=== PATIENT | female | born 1990 | race Caucasian/White ===

== ENCOUNTER → 2018-02-03 13:58 | Outpatient (CLI) | payer SELFPAY ==
[2018-02-03 15:57] LABS: Absolute Lymphocyte Count 1.65 X10^3/ul (0.83-4.51); Absolute Neutrophil Count 5.9 X10^3/uL (2.0-7.7); Basophil# 0.02 X10^3/uL; Basophil% 0.2 % (0-1); Eosinophil# 0.04 X10^3/uL; Eosinophils% 0.5 % (0-5); Hematocrit 37.3 % (37-47); Hemoglobin 12.3 g/dl (12.0-15.0); Lymphocyte # 1.65 X10^3/ul (4.0); Lymphocyte % 20.4 % (19-41); Mean Corpuscular Hgb 28.8 pg (27.0-32.0); Mean Corpuscular Volume 87.4 fL (81-99); Mean Platelet Vol. 8.4 fl (6.2-12.0); Monocyte# 0.43 X10^3/uL; Monocyte% 5.3 % (0-10); Neutrophil # 5.94 X10^3/uL (2.7-7.7); Neutrophil % 73.5 % (47-70); Platelet Count 276 K/mm3 (150-450); RBC Distribution Width CV 12.5 % (11.6-14.6); RBC Distribution Width SD 39.2 fl (35.1-43.9); Red Blood Count 4.27 M/mm3 (4.2-5.4); White Blood Count 8.1 K/mm3 (4.4-11.0)
[2018-02-03 15:59] LABS: POSITIVE COUNT NO; POSITIVE DIFFERENTIAL NO; POSITIVE MORPHOLOGY NO
[2018-02-03 16:36] LABS: Thyroid Stim Hormone (TSH) 1.01 uIU/mL (0.358-3.74)
[2018-02-03 16:44] LABS: Color, Urine Yellow (Yellow); Glucose, Dipstick Normal (Normal); Ketone-Dipstick Negative (Negative); Leukocyte Esterase-Dipstick 25 /ul (Negative); Nitrite-Dipstick Negative (Negative); Occult Blood-Urine Negative /ul (Negative); Protein-Dipstick Negative (Negative); Specific Gravity, Urine 1.025 (1.002-1.030); Urine Bilirubin Dipstick Negative (Negative); Urine Clarity Cloudy (Clear); Urine Urobilinogen Normal (Normal)
[2018-02-03 16:52] LABS: HIV - WCH Non-Reactive (Nonreactive); Rubella IgG 414.6 IU/mL
[2018-02-03 17:41] LABS: Chlamydia Trachomatis by PCR Negative (Negative); Neisserai gonorrhoeae by PCR Negative (Negative); Probe Check PASS; Sample Adequacy Control PASS; Specimen Processing Control PASS
[2018-02-05 04:36] LABS: Prenatal RPR NONREACTIVE (NONREACTIVE)
[2018-02-05 11:13] LABS: HEPATITIS B SURFACE AG Negative (Negative); Hep C Antibodies 0.1 s/co ratio (0.0-0.9)
== END ==
PROVIDERS: Visit Provider Obstetrics & Gynecology
DX: Z34.81 Encounter for supervision of other normal pregnancy, first trimester (principal); Z11.3 Encounter for screening for infections with a predominantly sexual mode of transmission
CPT/HCPCS: 36415; 81002; 84443; 85025; 86703; 86762; 86803; 87340; 87491; 87591

== ENCOUNTER → 2018-05-31 14:34 | Outpatient (CLI) | payer SELFPAY ==
[2018-05-31 15:40] LABS: Hematocrit 34.8 % (37-47); Hemoglobin 11.5 g/dl (12.0-15.0); Mean Corpuscular Hgb 29.9 pg (27.0-32.0); Mean Corpuscular Volume 90.4 fL (81-99); Mean Platelet Vol. 8.7 fl (6.2-12.0); Platelet Count 309 K/mm3 (150-450); RBC Distribution Width CV 12.3 % (11.6-14.6); RBC Distribution Width SD 39.5 fl (35.1-43.9); Red Blood Count 3.85 M/mm3 (4.2-5.4); White Blood Count 12.5 K/mm3 (4.4-11.0)
[2018-05-31 15:41] LABS: Scan Indicated on CBC? Y/N NO
[2018-05-31 15:46] LABS: Glucose Challenge Gest 1H 50g 87 mg/dL (70-140)
== END ==
PROVIDERS: Visit Provider Obstetrics & Gynecology
DX: Z34.83 Encounter for supervision of other normal pregnancy, third trimester (principal)
CPT/HCPCS: 82950; 85027; 86850

== ENCOUNTER → 2018-07-21 13:39 | Outpatient (CLI) | payer SELFPAY | PROVIDERS: Visit Provider Obstetrics & Gynecology | DX: Z36.85 Encounter for antenatal screening for Streptococcus B (principal) | CPT/HCPCS: 87081 ==

== ENCOUNTER 2018-08-12 07:00 | Inpatient (IN) | payer SELFPAY ==
[2018-08-12 07:13] VITALS: BMI 32.6
[2018-08-12 08:18] LABS: Hemoglobin 11.1 g/dl (12.0-15.0); Mean Corp Hgb Conc 32.6 g/gl (32-36); Mean Corpuscular Hgb 29.4 pg (27.0-32.0); Mean Corpuscular Volume 89.9 fL (81-99); Mean Platelet Vol. 9.8 fl (6.2-12.0); Platelet Count 157 K/mm3 (150-450); RBC Distribution Width CV 13.2 % (11.6-14.6); Red Blood Count 3.78 M/mm3 (4.2-5.4); Scan Indicated on CBC? Y/N NO; White Blood Count 10.1 K/mm3 (4.4-11.0)
[2018-08-12] MEDS: Lactated Ringers 1,000 ML 50 ML IV ×3 (08:33→15:23)
[2018-08-12] MEDS: Oxytocin 30 units/NS 500 ml 30 UNITS/500 ML IV.SOLN IV (08:33)
[2018-08-12] MEDS: Oxytocin 30 units/NS 500 ml 30 UNITS/500 ML IV.SOLN 334 UNITS IV (18:21)
--- NOTE | 2018-08-12 18:35 | PCM.OB.VAG ---
Vaginal Delivery Maternal Presentation: Elective Induction Method of Induction: Pitocin, Amniotomy Amniotic Membrane Rupture Type: Artificial Amniotic Fluid Description: Clear Final MJ: 08/16/18 Final MJ Source: US <20 weeks Gestational age: 39 Weeks and 3 Days Date of Procedure: 08/12/18 Pre-Operative Diagnosis: IUP Post-Operative Diagnosis: IUP Surgery/ Procedure Performed: Spontaneous Vaginal Delivery Type of Anesthesia: Epidural Description of Procedure: Spontaneous vaginal delivery of a viable male infant with Apgars of 8/9 from an occiput anterior presentation with clear amniotic fluid and normal three-vessel placenta. Cord around left arm loose. No episiotomy. First-degree midline laceration repaired with 3-0 Vicryl suture. Sponges okay. Delivery physician: Del Anderson MD Presentation: Vertex Placental Delivery Description: Spontaneous Placenta Disposition: [facility] Cord Vessel Description: 3 Vessels Cord Entanglement: None Estimated Blood Loss: 250 cc Infant A gender: Male (1 minute): 8 (5 minute): 9 Episiotomy Description: None Laceration: Midline, 1st degree Medications given after delivery: IV Pitocin Complications: None
--- NOTE | 2018-08-12 18:38 | PCM.DCVAG ---
Discharge Diet: No Restrictions Discharge Activity: May Shower, May Take a Tub Bath May resume sexual activity in: 4-6 weeks Additional Activity Instructions:: Nothing in the vagina for 4-6 weeks. You may return to work/school in 6 weeks. Call your doctor if you observe: Fever of 101 or Higher, Inability to urinate, Inability to have a bowel movement, Using more than one pad per hour Additional Instructions: If you experience any of the following, contact your healthcare provider. Bleeding that soaks a pad every hour for 2 hours Unrelieved incision or abdominal pain Swelling, redness, discharge or bleeding from your incision or episiotomy site Your incision begins to separate Problems urinating (including inability to urinate or burning while urinating). Visual changes Severe headache Flu-like symptoms Pain or redness in one of both of your breasts Pain, warmth, tenderness or swelling in your legs, especially the calf area Frequent nausea and vomiting Symptoms of depression or anxiety If you experience any of the following, call 911 or go to the nearest Emergency Room. Chest pain Problems breathing Seizure activity Partial or complete paralysis of a body part, slurred speech, weakness or drooping of the face, or a sudden inability to walk or hold your balance Allergies/Adverse Reactions: Allergies No Known Allergies Allergy (Verified 08/12/18 07:35) Please Follow Up With: Del Anderson MD - [phone] When: Call to make an appointment with your doctor in 6 weeks. Primary Care Physician: Care Physician,No Primary [Primary Care Provider] - Test Results: Test results from this visit will be discussed in further detail at your follow-up appointment, if applicable.
--- NOTE | 2018-08-12 18:39 | DCINST_ITS ---
Discharge Diet: No Restrictions Discharge Activity: May Shower, May Take a Tub Bath May resume sexual activity in: 4-6 weeks Additional Activity Instructions:: Nothing in the vagina for 4-6 weeks. You may return to work/school in 6 weeks. Call your doctor if you observe: Fever of 101 or Higher, Inability to urinate, Inability to have a bowel movement, Using more than one pad per hour Additional Instructions: If you experience any of the following, contact your healthcare provider. * Bleeding that soaks a pad every hour for 2 hours * Unrelieved incision or abdominal pain * Swelling, redness, discharge or bleeding from your incision or episiotomy site * Your incision begins to separate * Problems urinating (including inability to urinate or burning while urinating). * Visual changes * Severe headache * Flu-like symptoms * Pain or redness in one of both of your breasts * Pain, warmth, tenderness or swelling in your legs, especially the calf area * Frequent nausea and vomiting * Symptoms of depression or anxiety If you experience any of the following, call 911 or go to the nearest Emergency Room. * Chest pain * Problems breathing * Seizure activity * Partial or complete paralysis of a body part, slurred speech, weakness or drooping of the face, or a sudden inability to walk or hold your balance Allergies/Adverse Reactions: Allergies No Known Allergies Allergy (Verified 08/12/18 07:35) Please Follow Up With: Del Anderson MD - [phone] When: Call to make an appointment with your doctor in 6 weeks. Primary Care Physician: Care Physician,No Primary [Primary Care Provider] - Test Results: Test results from this visit will be discussed in further detail at your follow- up appointment, if applicable.
[2018-08-12] MEDS: Oxytocin 30 units/NS 500 ml 30 UNITS/500 ML IV.SOLN 167 UNITS IV (18:51)
[2018-08-12 22:21] VITALS: BP 119/64; PULSE 96; RESP 16; TEMP 36.7
[2018-08-12] MEDS: Ibuprofen 600 MG Tablet PO (22:23)
[2018-08-13 01:35] VITALS: BP 107/53; PULSE 78; RESP 16; TEMP 36.4; O2SAT 98
[2018-08-13 04:31] VITALS: BP 91/56; PULSE 78; RESP 14; TEMP 36.3; O2SAT 96
[2018-08-13] MEDS: Acetaminophen 500 MG Tablet 1000 MG PO (06:53)
[2018-08-13 08:44] VITALS: BP 109/64; PULSE 84; RESP 16; TEMP 36.4; O2SAT 98
--- NOTE | 2018-08-13 09:20 | PCM.PN.OB ---
Subjective: Patient without complaints. Breast-feeding going well. Minimal vaginal bleeding noted. Wants to go home later today if baby is able to go. - Physical Exam Vital Signs Temp Pulse Resp BP Pulse Ox 97.5 F L 84 16 109/64 98 08/13/18 08:44 08/13/18 08:44 08/13/18 08:44 08/13/18 08:44 08/13/18 08:44 Oxygen Delivery Method Room Air Weight: 193 lb 2 oz Body Mass Index (BMI) 32.6 Intake and Output for Last 24 Hours 08/11/18 08/12/18 08/13/18 23:59 23:59 23:59 Output Total 200 / 200 Balance -200 / -200 Laboratory Tests Past 24 Hrs 08/12/18 08/12/18 08:00 09:50 Blood Type Cancelled A NEGATIVE A1 Antigen Typing Cancelled Rho(D) Type Cancelled Antibody Screen Cancelled NEGATIVE Medical Necessity - Tobacco Use Smoking Status: Never smoker Assessment/Plan Doing well day #1. Home-going instructions given in anticipation of released to home later today.
[2018-08-13 13:00] VITALS: BP 112/60; PULSE 79; RESP 16; TEMP 36.6; O2SAT 98
[2018-08-13] MEDS: Ibuprofen 600 MG Tablet PO ×2 (13:10→19:59)
[2018-08-13 16:00] VITALS: BP 110/58; PULSE 84; RESP 16; TEMP 36.7; O2SAT 96
--- NOTE | 2018-08-17 16:01 | NURSING ---
Doing well . Baby nursing well and milk is in and baby gaining weight. Really like Sadie she was amazing and Nadine and Tasha were very helpful.
== END 2018-08-13 20:00 | disposition home or self-care (01) | DRG 807 ==
PROVIDERS: Admitting Provider Obstetrics & Gynecology; Referring Provider Obstetrics & Gynecology; Visit Provider Obstetrics & Gynecology
DX: O75.89 Other specified complications of labor and delivery (principal); Z37.0 Single live birth; O70.0 First degree perineal laceration during delivery; Z3A.39 39 weeks gestation of pregnancy
CPT/HCPCS: 59025; 59050; 85027; 85461; 86850; 86900; 90384; 99218; J7120; 90686; G0378; J2790

== ENCOUNTER → 2019-06-01 15:07 | Outpatient (CLI) | payer OTHER, SELFPAY ==
[2019-06-01 15:34] LABS: Absolute Lymphocyte Count 1.76 X10^3/uL (0.83-4.51); Absolute Neutrophil Count 6.2 X10^3/uL (2.0-7.7); Basophil# 0.02 X10^3/uL; Basophil% 0.2 % (0-1); Eosinophil# 0.04 X10^3/uL; Eosinophils% 0.5 % (0-5); Hematocrit 35.8 % (37-47); Hemoglobin 11.8 g/dL (12.0-15.0); Lymphocyte # 1.76 X10^3/ul (4.0); Lymphocyte % 20.7 % (19-41); Mean Corpuscular Hgb 28.6 pg (27.0-32.0); Mean Corpuscular Volume 86.7 fL (81-99); Mean Platelet Vol. 8.3 fl (6.2-12.0); Monocyte# 0.45 X10^3/uL; Monocyte% 5.3 % (0-10); NRBC Flagged by Analyzer 0 % (0-5); Neutrophil # 6.21 X10^3/uL (2.7-7.7); Neutrophil % 72.9 % (47-70); Platelet Count 272 K/mm3 (150-450); RBC Distribution Width CV 11.9 % (11.6-14.6); RBC Distribution Width SD 37.9 fl (35.1-43.9); Red Blood Count 4.13 M/mm3 (4.2-5.4); White Blood Count 8.5 K/mm3 (4.4-11.0)
[2019-06-01 15:46] LABS: Color, Urine Yellow (Yellow); Glucose, Dipstick Normal (Normal); Ketone-Dipstick Negative (Negative); Leukocyte Esterase-Dipstick 100 /ul (Negative); Nitrite-Dipstick Negative (Negative); Occult Blood-Urine Negative /ul (Negative); Protein-Dipstick Negative (Negative); Specific Gravity, Urine 1.025 (1.002-1.030); Urine Bilirubin Dipstick Negative (Negative); Urine Clarity Cloudy (Clear); Urine Urobilinogen Normal (Normal)
[2019-06-01 16:03] LABS: Thyroid Stim Hormone (TSH) 1.06 uIU/mL (0.358-3.74)
[2019-06-01 18:17] LABS: Chlamydia Trachomatis by PCR Negative (Negative); Neisserai gonorrhoeae by PCR Negative (Negative); Probe Check PASS; Sample Adequacy Control PASS; Specimen Processing Control PASS
[2019-06-02 03:12] LABS: Prenatal RPR NONREACTIVE (NONREACTIVE)
[2019-06-02 09:52] LABS: HIV - WCH Non-Reactive (Nonreactive); Hepatitis B Surface Antigen Non-Reactive (Nonreactive); Hepatitis C Antibody Non-Reactive (Nonreactive); Rubella IgG 387.8 IU/mL
== END ==
PROVIDERS: Visit Provider Obstetrics & Gynecology
DX: Z11.3 Encounter for screening for infections with a predominantly sexual mode of transmission (principal); Z34.82 Encounter for supervision of other normal pregnancy, second trimester
CPT/HCPCS: 36415; 81002; 84443; 85025; 86703; 86762; 86803; 87340; 87491; 87591

== ENCOUNTER → 2019-09-15 09:54 | Outpatient (CLI) | payer OTHER, SELFPAY ==
[2019-09-15 10:51] LABS: Hematocrit 35.5 % (37-47); Hemoglobin 11.7 g/dL (12.0-15.0); Mean Corpuscular Hgb 29.8 pg (27.0-32.0); Mean Corpuscular Volume 90.3 fL (81-99); Mean Platelet Vol. 8.6 fl (6.2-12.0); Platelet Count 249 K/mm3 (150-450); RBC Distribution Width CV 12.2 % (11.6-14.6); RBC Distribution Width SD 40.5 fl (35.1-43.9); Red Blood Count 3.93 M/mm3 (4.2-5.4)
[2019-09-15 10:58] LABS: Glucose Challenge Gest 1H 50g 95 mg/dL (70-140)
== END ==
PROVIDERS: Visit Provider Obstetrics & Gynecology
DX: Z34.83 Encounter for supervision of other normal pregnancy, third trimester (principal)
CPT/HCPCS: 36415; 82950; 85027; 86850

== ENCOUNTER → 2019-11-10 17:28 | Outpatient (CLI) | payer OTHER, SELFPAY | PROVIDERS: Referring Provider Obstetrics & Gynecology; Visit Provider Obstetrics & Gynecology | DX: Z36.85 Encounter for antenatal screening for Streptococcus B (principal) | CPT/HCPCS: 87081 ==

== ENCOUNTER 2019-11-30 07:00 | Inpatient (IN) | payer SELFPAY ==
[2019-11-30] VITALS (45 sets, daily range): BP systolic 109–133; BP diastolic 58–77; PULSE 67–163; RESP 16; TEMP 36.3–37; O2SAT 82–99; BMI 34.0
[2019-11-30] MEDS: Lactated Ringers 1,000 ML 50 ML IV (07:35)
[2019-11-30 07:45] LABS: Absolute Lymphocyte Count 1.38 X10^3/uL (0.83-4.51); Absolute Neutrophil Count 6.6 X10^3/uL (2.0-7.7); Basophil# 0.02 X10^3/uL; Basophil% 0.2 % (0-1); Eosinophil# 0.08 X10^3/uL; Eosinophils% 0.9 % (0-5); Hematocrit 34.3 % (37-47); Hemoglobin 11.3 g/dL (12.0-15.0); Lymphocyte # 1.38 X10^3/ul (4.0); Lymphocyte % 15.6 % (19-41); Mean Corp Hgb Conc 32.9 g/dL (32-36); Mean Corpuscular Hgb 29.6 pg (27.0-32.0); Mean Corpuscular Volume 89.8 fL (81-99); Mean Platelet Vol. 8.6 fl (6.2-12.0); Monocyte# 0.63 X10^3/uL; Monocyte% 7.1 % (0-10); NRBC Flagged by Analyzer 0 % (0-5); Neutrophil # 6.61 X10^3/uL (2.7-7.7); Neutrophil % 74.7 % (47-70); Platelet Count 231 K/mm3 (150-450); RBC Distribution Width CV 12.5 % (11.6-14.6); RBC Distribution Width SD 40.4 fl (35.1-43.9); Red Blood Count 3.82 M/mm3 (4.2-5.4); White Blood Count 8.9 K/mm3 (4.4-11.0)
[2019-11-30] MEDS: Oxytocin 30 units/NS 500 ml 30 UNITS/500 ML IV.SOLN IV (08:00)
--- NOTE | 2019-11-30 08:18 | HP.PCM_ITS ---
History and Physical Date of Admission: 11/30/19 OG ANTEPARTUM RECORD - HISTORY AND PHYSICAL (11/30/2019) Name: FLOR FUENTES History of This : This is a 29-year-old 4 para 3 who presents for elective induction. care has been uneventful. OB Physician: LEROY 's Physician: Dr. Renee Balderas ...................................................................... : 1990 Age: 29 Address: [address] [place] [address] Phone: (h) [phone] (o) [phone] Insurance Carrier: Emergency Contact: KRISHNIDHI GUZMAN ALFREDO [phone] ...................................................................... Final MJ: 12/04/19 By Ultrasound: 13 weeks 3 days PARITY: (G-Total Pregnancies P-Fullterm,Premature,Induced AB,Spont AB, Ectopics, Multiple,Living) MJ CONFIRMATION: By LMP: 02/27/19 Initial Exam: 12/04/19 By First Ultrasound Exam: 12/03/19 Final MJ: 12/04/19 OB PROBLEM LIST: Declines AFP and CF tests. Rh negative RhoGAM at 28 wks Second delivery required Cynthia Maneuver x 2 to deliver z--Prefers MD for delivery ALLERGIES: No Known Allergies MEDICATIONS: iron 325 mg (65 mg iron) tablet One pill by mouth once a day [place] 3-6-9 1,200 mg capsule One pill by mouth once a day 28 mg iron-800 mcg tablet One pill by mouth once a day SOCIAL HISTORY: Smoking - denies smoking Alcohol Use - denies drinking Diet - balanced Diet, caffeine < 2 drinks per day and water intake tries for one gal daily. LIkes water. Lifestyle - low stress lifestyle and Exercise - active work Employer - [employer] Job Description - Illicit Drug Use - denies use of street drugs Sexual Activity - Residence - Lives with and kids. 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 Jan 22 40 15 7 12 Vag Epidural No Jul 27 40 5 8 12 Vag None No Jul 31 39 9 7 2 Vagin Epidural No ANTEPARTUM FLOW CHART VISIT RTC FU F F IL U U DATE WK MD WKS HT PN HR M SS BP ED WT IL GL D EF ST __ ____ ___ __ __ ___ __ __ __ ___ __ __ __ ___ __ 14 November 38 JMW 1 38 V + + 118/74 0 199 - - 2+ 50 -2 07 November 37 JMW 1 37 V + + 128/64 0 199 - - 2 50 -2 Oct 36 JMW 1 36 V + + 122/68 0 199 - - ft 50 -2 16 Oct JMW 2 34 + + 134/66 tr 197 tr - 05 Oct 07 JMW 4 28 + + 110/64 0 193 - - 03 Sep 05 JMW 4 24 + + 112/60 0 184 tr - Jul 31 JMW 4 20 + + 104/66 0 179 - - ANTEPARTUM NOTE(S): Nov 24 2019: see notes, Induce per Request Nov 17 2019: see progress note, Good FM Nov 10 2019: see note, GBS Done Oct 27 2019: Ctxs-mild, Good FM Sep 15 2019: see note, Rhogam today Aug 15 2019: Glucola/Instructions Given,FM Noted Jul 14 2019: Feeling well. BH ctx's noted. COMPREHENSIVE ANTEPARTUM NOTE(S): Nov 24 2019: Flor is here for a PNV. She is doing well. Good FM. No edema. Would like a cervical check today. No complaints or concerns expressed at this time. Induction scheduled for 11/30/2019 @ 7:00am, consents signed. Nov 24 2019: Induction literature provided. Nov 17 2019: Flor reports good FM. Up until 2 am w/ctx's. She has had a few today. No spotting. No leaking fluid. She would like to have a vag exam today. GBS negative 11/10/19. Advised to pre-register. Nov 14 2019: H taken to OB. tkg Nov 10 2019: Flor is here for a PNV. She is doing well. Good FM. No edema. Reports pressure in her lower abdomen, legs, and groin area. Says it might be due to her carrying around her 1 year old son during the day. GBS to be collected today and consents signed. Signed LARC consent, agreed to Mirena IUD. Sep 15 2019: Flor is here for a PNV. Good FM. No edema. No complaints at this time. Labs drawn today. Rhogam shot administered. Sep 15 2019: Rhogam administered IM RUOQ patient tolerated well site without compromise. jlb Jul 14 2019: Flor is here for her NOB visit at 19 w 4 d, she is a with an MJ of 12/04/2019. She, and , Luis Fernando, have 3 children at home; all delivered by . Past history updated. Delivery at [facility] is planned with an epidural, and she will breastfeed. Flor is an established patient, and her labs have been collected at a prior visit. Reviewed danger signs/emergencies to report, reporting a suspected UTI, round ligament pain, contacting the office after hours, and common OTC medications approved/not approved for use during . Flor states that first trimester nausea has resolved; and that she has been noting some BH ctx's. States that she feels well overall. She takes an OTC vitamin and tolerates this well. Flor is a life long non-smoker, and denies use of drugs or ETOH. Genetic Screening form completed, no significant history noted. MSAFP and CF testing de clined. Flor exercises regularly in the evenings, she states it's a workout. Reviewed exercise and lifting guidelines for . She eats an overall well balanced diet, she plans to watch her carb intake following the holidays. Reviewed water and dietary needs, including small frequent balanced meals with protein included throughout the day, adequate wate hydration of at least one gallon per 24 hours, caloric needs, recommended weight gain, limiting empty calories, and limiting caffeine to one cup a day. food safety reviewed. Flor states that she understands all information provided during NOB visit, and has no questions following same. To see Dr. Anderosn for a PNV today. AW New Jun 02 2019: A neg. GC chlamydia NEG. Rubella immune. TSH wnl. Hgb 11.8 g/dl EB Jun 01 2019: Flor presents here today for Missed Menses appointment. 29 y.o. G 4 P 3 non-smoker with history of regular menses and LMP of 08-18-19 lasting her average of 4 days. UPT is positive today in our Office. Presents at 14 weeks 3 days with an approximate MJ of 12-05-19. Plans at [facility] as last was 08/12/18. Denies spotting/bleeding thus far in and reports that her nausea has past in the last week. Currently taking an OTC Vitamin with Educational Materials given. Medication and Allergy lists up-dated. Last pap screening in 2018 with normal results. TANGELA Jun 01 2019: ok REVIEW OF SYSTEMS: GENERAL - Denies fever, or chills SKIN - Denies rash, new skin lesions, or change in moles EYES - Denies blurred vision, or change in visual acuity EARS - Denies ear pain, or difficulty hearing NOSE - Denies nasal congestion, discharge, or bleeding MOUTH - Denies sore throat, or difficulty swallowing NECK - Denies pain or swelling RESPIRATORY - Denies shortness of breath, cough, wheezing CARDIOVASCULAR - Denies palpitations, chest pain, orthopnea, PND, peripheral edema, syncope or claudication GASTROINTESTINAL - Denies nausea, vomiting, diarrhea, constipation, Denies abdominal pain, melena and or bright red blood GENITOURINARY - Denies dysuria, frequency of urination, urgency, or hesitancy MUSCULOSKELETAL - Denies joint or muscle pain, or back pain NEUROLOGICAL - Denies localized numbness, weakness, or tingling PSYCHIATRIC - Denies depression, anxiety, substance abuse or suicide attempts ENDOCRINE - Denies heat or cold intolerance, weight loss or gain, increasing thirst HEMATO-IMMUNOLOGIC - Denies easy bruising, bleeding, oral ulcerations or recurrent infections GENETICS SCREENING: Age 35+ years: No Thalassemia: No Neural Tube Defect: No Down Syndrome: No ZAFAR-SACHS: No Sickle Cell Disease: No Hemophilia: No Musc. Dystrophy: No Cystic Fibrosis: No-declines screening Day Chorea: No Mental Retardation: No Fragile X: No Other genetic: No Other defects: No SABs/still births: No Drugs since LMP: No INFECTION HISTORY: High risk AIDS: No High risk Hepatitis: No Exposed to TB: No Exposed to Herpes: No Rash/viral illness since LMP: No History of STD: No MENSTRUAL HISTORY: *Menses Amount/Duration: 4 daysMenses Regularity: RegularFrequency: monthlyMenarche (Age Onset): 12* PAST SUMMARY: PARITY: 1. Total Pregnancies............ 4 2. Full Term Pregnancies........ 3 3. Premature.................... 0 4. Abortions - Induced.......... 0 5. Abortions - Spontaneous...... 0 6. Ectopics..................... 0 7. Multiple Births.............. 0 8. Living Children.............. 3 PAST #1: Date of :.................. 01/16/13 Gestation Weeks:................ 40 Length of labor(hours):......... 15 Sex:............................ F Weight-lbs:............... 7 Weight-oz:................ 12 Type of Delivery:............... Vag Type of Anesthesia:............. Epidural Place of Delivery:.............. [place] Treatment of Labor?:.... No Comment: [facility] PAST #2: Date of :.................. 07/20/14 Gestation Weeks:................ 40 Length of labor(hours):......... 5 Sex:............................ M Weight-lbs:............... 8 Weight-oz:................ 12 Type of Delivery:............... Vag Type of Anesthesia:............. None Place of Delivery:.............. [facility] Treatment of Labor?:.... No Comment: CAN. RESCUSITATED. PAST #3: Date of :.................. 08/12/18 Gestation Weeks:................ 39 Length of labor(hours):......... 9 Sex:............................ M Weight-lbs:............... 7 Weight-oz:................ 2 Type of Delivery:............... Vaginal Type of Anesthesia:............. Epidural Place of Delivery:.............. [place] Treatment of Labor?:.... No Comment: IOL PHYSICAL EXAMINATION General Appearence: 29 yo female in no acute distress Vital Signs: AF, VSS Heart: RRR without rubs or gallops Lungs: CTA x 2 Breasts: deferred Abdomen: gravid Pelvis: Cervix: 2+/50 Presentation: cephalic Station: -2 Fetus: Size: AGA Movement: present Heart: present Labs for : FLOR FUENTES since 03/09/2019 ORDER DATEIN DESCRIPTION VALUE UNITS RANGE A+ COMMENT CBC W/DIFF, AUTOMATED 11/30/19 NOTE Original Ordering Provider: Sánchez Anderson WBC 8.9 K/mm3 4.4-11.0 RBC 3.82 M/mm3 4.2-5.4 L HGB 11.3 g/dL 12.0-15.0 L HCT 34.3 % 37-47 L MCV 89.8 fL 81-99 MCH 29.6 pg 27.0-32.0 MCHC 32.9 g/dL 32-36 RDW CV 12.5 % 11.6-14.6 RDW SD 40.4 fl 35.1-43.9 PLT 231 K/mm3 150-450 MPV 8.6 fl 6.2-12.0 NEUT% 74.7 % 47-70 H LY% 15.6 % 19-41 L MONO% 7.1 % 0-10 EO% 0.9 % 0-5 BASO% 0.2w % 0-1 IM GRAN % 1.500 % 0.0-0.9 H IG% - Immature Granulocytes (promyelocytes, myelocytes and metamyelocytes) > 1% indicates that a LEFT SHIFT is Present. ABSOLUTE NEUT 6.6 X10 3/uL 2.0-7.7 ABSOLUTE LYMPH 1.38 X10 3/uL 0.83-4.51 NRBC, FLAGGED 0 % 0-5 CULTURE, GROUP B STREPTOCOCCUS 11/10/19 NOTE Original Ordering Provider: Sánchez Anderson ASTRID Culture Group B Beta Streptococcus is not isolated. Reviewed by SÁNCHEZ ANTIBODY SCREEN 09/15/19 [facility]~[address] [place], [address]~ ANTIBODY SCREEN NEGATIVE N Reviewed by SÁNCHEZ GLUCOSE CHALLENGE GEST 1H 50G 09/15/19 NOTE Original Ordering Provider: Sánchez Anderson GLU GEST 50G 1H 95 mg/dL 70-140 Reviewed by SÁNCHEZ CBC-COMPLETE BLOOD CNT NO DIFF 09/15/19 NOTE Original Ordering Provider: Sánchez Anderson WBC 9.0 K/mm3 4.4-11.0 RBC 3.93 M/mm3 4.2-5.4 L HGB 11.7 g/dL 12.0-15.0 L HCT 35.5 % 37-47 L MCV 90.3 fL 81-99 MCH 29.8 pg 27.0-32.0 MCHC 33.0 g/dL 32-36 RDW CV 12.2 % 11.6-14.6 RDW SD 40.5 fl 35.1-43.9 PLT 249 K/mm3 150-450 MPV 8.6 fl 6.2-12.0 Reviewed by SÁNCHEZ HEPATITIS C ANTIBODY 06/01/19 NOTE Original Ordering Provider: Sánchez Anderson HEPATITIS C AB Non-Reactive Nonreactive Non Reactive: < 0.8 Equivocal: >/= 0.8 to < 1.0 Reactive: >/= 1.0 The CDC recommends that a reactive/equivocal HCV antibody result be followed up by the HCV Nucleic Acid Amplification test ([id number]) Reviewed by SERENA HEPATITIS B SURFACE ANTIGEN 06/01/19 NOTE Original Ordering Provider: Sánchez Anderson HEPB SURFACE AG Non-Reactive Nonreactive Reviewed by SERENA HIV - H 06/01/19 NOTE Original Ordering Provider: Sánchez Anderson HIV - [facility] Non-Reactive Nonreactive Reviewed by SERENA RUBELLA IGG 06/01/19 NOTE Original Ordering Provider: Sánchez Anderson RUBELLA IGG 387.8 IU/mL Antibody results Interpretation of Immune Status < 5 IU/ml Presumed Non-immune 5 - < 10 IU/ml Equivocal > or = 10 IU/ml Presumed Immune Reviewed by SERENA RPR 06/01/19 NOTE Original Ordering Provider: Sánchez Anderson RPR NONREACTIVE NONREACTIVE Reviewed by SERENA T AND S-NO CHARGE W/PNP 06/01/19 Reason for Type AND Screen/Red Cells: Surgery? N [facility]~[address] [place], [address]~ BLOOD TYPE GEL A NEGATIVE N AB SCREEN GEL NEGATIVE N Reviewed by SERENA CT/ANTONIO [facility] BY PCR 06/01/19 NOTE Original Ordering Provider: Sácnhez Anderson [facility] PCR Negative Negative NG BY PCR Negative Negative Reviewed by SERENA URINALYSIS, ROUTINE (DIPSTICK) 06/01/19 NOTE Original Ordering Provider: Sánchez Anderson COLOR Yellow Yellow CLARITY Cloudy Clear GLUCOSE, UR Normal mg/dl Normal BILIRUBIN URINE Negative mg/dL Negative KETONE UR Negative mg/dl Negative w SP.GR. DIPSTX 1.025 1.002-1.030 PH UR 5.0 5.0 - 8.0 PROT DIPSTX Negative mg/dl Negative UROBILI Normal mg/dl Normal NITRITE UR Negative Negative OCCULT BLOOD-UR Negative /ul Negative LEUK ESTERASE 100 /ul Negative H Reviewed by SERENA THYROID STIM HORMONE (TSH) 06/01/19 NOTE Original Ordering Provider: Sánchez Anderson TSH 1.06 uIU/mL 0.358-3.74 Reviewed by SERENA CBC W/DIFF, AUTOMATED 06/01/19 NOTE Original Ordering Provider: Sánchez Anderson WBC 8.5 K/mm3 4.4-11.0 RBC 4.13 M/mm3 4.2-5.4 L HGB 11.8 g/dL 12.0-15.0 L HCT 35.8 % 37-47 L MCV 86.7 fL 81-99 MCH 28.6 pg 27.0-32.0 MCHC 33.0 g/dL 32-36 RDW CV 11.9 % 11.6-14.6 RDW SD 37.9 fl 35.1-43.9 PLT 272 K/mm3 150-450 MPV 8.3 fl 6.2-12.0 r NEUT% 72.9 % 47-70 H LY% 20.7 % 19-41 MONO% 5.3 % 0-10 EO% 0.5 % 0-5 BASO% 0.2 % 0-1 IM GRAN % 0.400 % 0.0-0.9 IG% - Immature Granulocytes (promyelocytes, myelocytes and metamyelocytes) > 1% indicates that a LEFT SHIFT is Present. ABSOLUTE NEUT 6.2 X10 3/uL 2.0-7.7 ABSOLUTE LYMPH 1.76 X10 3/uL 0.83-4.51 NRBC, FLAGGED 0 % 0-5 Reviewed by SERENA Impression /Plan: 39+ week intrauterine for elective induction. Plan Pitocin and rupture of membranes. Preparations in progress for delivery.
[2019-11-30] MEDS: Lactated Ringers 500 ML 999 ML IV (12:10)
[2019-11-30] MEDS: fentaNYL-bupivacaine (epidural) 100 ML BAG EPIDURAL (13:10)
[2019-11-30] MEDS: Oxytocin 30 units/NS 500 ml 30 UNITS/500 ML IV.SOLN 334 UNITS IV (14:05)
--- NOTE | 2019-11-30 14:12 | PCM.OPRPT ---
Vaginal Delivery Maternal Presentation: Elective Induction Method of Induction: Pitocin, Amniotomy Amniotic Membrane Rupture Type: Artificial Amniotic Fluid Description: Clear Final MJ: 12/04/19 Final MJ Source: US <20 weeks Gestational age: 39 Weeks and 3 Days [place] doctor who attended delivery (if requested by OB): Magdalena Salazar Date of Procedure: 11/30/19 Pre-Operative Diagnosis: IUP Post-Operative Diagnosis: IUP Surgery/ Procedure Performed: Spontaneous Vaginal Delivery Type of Anesthesia: None Description of Procedure: Spontaneous vaginal delivery of a viable female infant with Apgars of 8/9 from an occiput anterior presentation with light meconium stained amniotic fluid and normal three-vessel placenta. No episiotomy. First-degree midline laceration repaired with 3-0 Rapide suture. Sponges okay. Delivery physician: Del Anderson MD. Presentation: Vertex Placental Delivery Description: Spontaneous Placenta Disposition: [facility] Cord Vessel Description: 3 Vessels Cord Entanglement: None A gender: Female (1 minute): 8 (5 minute): 9 Episiotomy Description: None Laceration: Midline, 1st degree Medications given after delivery: IV Pitocin Complications: None
--- NOTE | 2019-11-30 14:14 | DCINST_ITS ---
<Del Anderson - Last Filed: 11/30/19 14:14> Discharge Diet: No Restrictions Discharge Activity: May Shower, May Take a Tub Bath May resume sexual activity in: 4-6 weeks Additional Activity Instructions:: Nothing in the vagina for 4-6 weeks. You may return to work/school in 6 weeks. Call your doctor if you observe: Inability to urinate, Inability to have a bowel movement, Using more than one pad per hour Additional Instructions: If you experience any of the following, contact your healthcare provider. * Bleeding that soaks a pad every hour for 2 hours * Fever 100.4 or higher * Unrelieved incision or abdominal pain * Swelling, redness, discharge or bleeding from your incision or episiotomy site * Your incision begins to separate * Problems urinating (including inability to urinate or burning while urinating). * Visual changes * Severe headache * Flu-like symptoms * Pain or redness in one of both of your breasts * Pain, warmth, tenderness or swelling in your legs, especially the calf area * Frequent nausea and vomiting * Symptoms of depression or anxiety If you experience any of the following, call 911 or go to the nearest Emergency Room. * Chest pain * Problems breathing * Seizure activity * Partial or complete paralysis of a body part, slurred speech, weakness or drooping of the face, or a sudden inability to walk or hold your balance Allergies/Adverse Reactions: Allergies No Known Allergies Allergy (Verified 11/30/19 07:17) Medications to take at Discharge Vits [Prenatabs FA] 1 tab PO DAILY 11/30/19 Please Follow Up With: Del Anderson MD - [phone] When: Call to make an appointment with your doctor in 6 weeks. Primary Care Physician: Care Physician,No Primary [Primary Care Provider] - Test Results: Test results from this visit will be discussed in further detail at your follow- up appointment, if applicable. <Jodie Montez - Last Filed: 12/01/19 08:27> Additional Instructions: If you experience any of the following, contact your healthcare provider. * Bleeding that soaks a pad every hour for 2 hours * Fever 100.4 or higher * Unrelieved incision or abdominal pain * Swelling, redness, discharge or bleeding from your incision or episiotomy site * Your incision begins to separate * Problems urinating (including inability to urinate or burning while urinating). * Visual changes * Severe headache * Flu-like symptoms * Pain or redness in one of both of your breasts * Pain, warmth, tenderness or swelling in your legs, especially the calf area * Frequent nausea and vomiting * Symptoms of depression or anxiety If you experience any of the following, call 911 or go to the nearest Emergency Room. * Chest pain * Problems breathing * Seizure activity * Partial or complete paralysis of a body part, slurred speech, weakness or drooping of the face, or a sudden inability to walk or hold your balance Test Results: Test results from this visit will be discussed in further detail at your follow- up appointment, if applicable.
--- NOTE | 2019-11-30 14:14 | PCM.DCVAG ---
<Del Anderson - Last Filed: 11/30/19 14:14> Discharge Diet: No Restrictions Discharge Activity: May Shower, May Take a Tub Bath May resume sexual activity in: 4-6 weeks Additional Activity Instructions:: Nothing in the vagina for 4-6 weeks. You may return to work/school in 6 weeks. Call your doctor if you observe: Inability to urinate, Inability to have a bowel movement, Using more than one pad per hour Additional Instructions: If you experience any of the following, contact your healthcare provider. Bleeding that soaks a pad every hour for 2 hours Fever 100.4 or higher Unrelieved incision or abdominal pain Swelling, redness, discharge or bleeding from your incision or episiotomy site Your incision begins to separate Problems urinating (including inability to urinate or burning while urinating). Visual changes Severe headache Flu-like symptoms Pain or redness in one of both of your breasts Pain, warmth, tenderness or swelling in your legs, especially the calf area Frequent nausea and vomiting Symptoms of depression or anxiety If you experience any of the following, call 911 or go to the nearest Emergency Room. Chest pain Problems breathing Seizure activity Partial or complete paralysis of a body part, slurred speech, weakness or drooping of the face, or a sudden inability to walk or hold your balance Allergies/Adverse Reactions: Allergies No Known Allergies Allergy (Verified 11/30/19 07:17) Medications to take at Discharge Vits [Prenatabs FA] 1 tab PO DAILY 11/30/19 Please Follow Up With: Del Anderson MD - [phone] When: Call to make an appointment with your doctor in 6 weeks. Primary Care Physician: Care Physician,No Primary [Primary Care Provider] - Test Results: Test results from this visit will be discussed in further detail at your follow-up appointment, if applicable. <Jodie Montez - Last Filed: 12/01/19 08:27> Additional Instructions: If you experience any of the following, contact your healthcare provider. Bleeding that soaks a pad every hour for 2 hours Fever 100.4 or higher Unrelieved incision or abdominal pain Swelling, redness, discharge or bleeding from your incision or episiotomy site Your incision begins to separate Problems urinating (including inability to urinate or burning while urinating). Visual changes Severe headache Flu-like symptoms Pain or redness in one of both of your breasts Pain, warmth, tenderness or swelling in your legs, especially the calf area Frequent nausea and vomiting Symptoms of depression or anxiety If you experience any of the following, call 911 or go to the nearest Emergency Room. Chest pain Problems breathing Seizure activity Partial or complete paralysis of a body part, slurred speech, weakness or drooping of the face, or a sudden inability to walk or hold your balance Test Results: Test results from this visit will be discussed in further detail at your follow-up appointment, if applicable.
[2019-11-30] MEDS: Ibuprofen 600 MG Tablet PO ×2 (15:45→21:53)
[2019-12-01] VITALS (8 sets, daily range): BP systolic 111–125; BP diastolic 58–74; PULSE 65–78; RESP 14–16; TEMP 35.9–36.5; O2SAT 95–100
[2019-12-01] MEDS: Ibuprofen 600 MG Tablet PO ×2 (06:32→14:20)
--- NOTE | 2019-12-01 08:27 | PCM.PN.OB ---
Subjective: Feeling well today, just tired since went home to the other children. Daughter is is breast feeding well with no concerns at all. Denies pain or heavy bleeding. Has been up urinating and passing flatus. Denies s/s of depression. Would like to discharge today. Objective: VSS. Fundus is firm, midline, u/1. Lochia rubra moderate. well - Physical Exam Vitals/I&O's: Vital Signs Temp Pulse Resp BP Pulse Ox 96.7 F L 65 16 111/58 L 98 12/01/19 04:27 12/01/19 04:28 12/01/19 04:27 12/01/19 04:28 11/30/19 19:46 Oxygen Delivery Method Room Air Weight: 89.811 kg Body Mass Index (BMI) 34.0 Intake and Output for Last 24 Hours 11/29/19 11/30/19 12/01/19 23:59 23:59 23:59 Intake Total 2632.71 / 2632.71 1000 / 1000 Output Total 900 / 900 Balance 1732.71 / 1732.71 1000 / 1000 General: Alert, Oriented x3, Cooperative HEENT: Atraumatic, PERRLA, EOMI, Normocephalic Neck: Supple, No JVD, Negative Carotid Bruits Lungs: Clear to auscultation, Normal air movement Cardiovascular: Regular rate, No murmurs Abdomen: Bowel Sounds Present, Soft, Non Tender Extremities: No edema, Capillary Refill Less than 3 Seconds Skin: No rashes, No breakdown Musculoskeletal: No Tenderness to Palpation of Joints or Extremities Neurological: Cranial nerves II-XII grossly intact Psych/Mental Status: Normal Affect, Appropriate Laboratory Results 11/30/19 07:30: Blood Type A NEGATIVE, Antibody Screen NEGATIVE 11/30/19 18:50: Screen NEGATIVE, Baby's Blood Type A POSITIVE, Baby's RUPAL NEGATIVE Current Medications Acetaminophen (Tylenol) 1,000 mg PO Q8H PRN PRN PRN Reason: Pain Score 1-3/10 Bisacodyl (Dulcolax) 10 mg RECTAL UD PRN PRN Reason: If no BM Dibucaine (Dibucaine) 1 applic TOPICAL TID PRN PRN; Protocol PRN Reason: Discomfort Hydrocortisone (Hytone) 1 applic TOPICAL TID PRN PRN; Protocol PRN Reason: Discomfort Ibuprofen (Motrin) 600 mg PO Q6H PRN PRN PRN Reason: Pain Score 1-3/10 Last Admin: 12/01/19 06:32 Dose: 600 mg Documented by: Methylergonovine Maleate (Methergine) 0.2 mg IM X1 PRN PRN Reason: Excess bleeding/uterine atony Ondansetron HCl (Zofran) 4 mg IV Q4H PRN PRN PRN Reason: Nausea Oxycodone HCl (Oxyir) 5 - 10 mg PO Q4H PRN PRN PRN Reason: Pain Score 4-10/10 Senna/Docusate Sodium (Senokot-S, Leatha-Colace) 1 - 2 tablet PO DAILY PRN PRN PRN Reason: Constipation Simethicone (Mylicon) 80 mg PO PCHS PRN PRN Reason: Indigestion/Stomach pain Sodium Chloride () 5 - 15 ml IV UD PRN PRN Reason: SALINE FLUSH Zolpidem Tartrate (Ambien (Generic)) 5 mg PO QHS PRN PRN PRN Reason: Insomnia Medical Necessity - Tobacco Use Smoking Status: Never smoker Assessment/Plan A/P: S/P day #1 mother Dyad stable To discharge home today To make a [address] follow up with [address] Anderson
== END 2019-12-01 16:30 | disposition home or self-care (01) | DRG 807 ==
PROVIDERS: Admitting Provider Obstetrics & Gynecology; Referring Provider Obstetrics & Gynecology; Visit Provider Obstetrics & Gynecology
DX: O75.9 Complication of labor and delivery, unspecified (principal); Z37.0 Single live birth; O77.0 Labor and delivery complicated by meconium in amniotic fluid; O70.0 First degree perineal laceration during delivery; Z3A.39 39 weeks gestation of pregnancy
CPT/HCPCS: 59025; 59050; 85025; 85461; 86850; 86900; 86901; 90384; 99218; J7120; G0378; J2790

== ENCOUNTER → 2020-01-19 13:52 | Outpatient (CLI) | payer SELFPAY ==
[2019-11-30 07:16] VITALS: BMI 34.0
[2020-01-24 20:31] LABS: HPV Reflexed? NOT INDICATED
== END ==
PROVIDERS: Visit Provider Obstetrics & Gynecology
DX: Z12.4 Encounter for screening for malignant neoplasm of cervix (principal)
CPT/HCPCS: 88175; G0145

== ENCOUNTER 2024-03-28 07:16 | Inpatient (IN) | payer SELFPAY ==
[2024-03-28] VITALS (59 sets, daily range): BP systolic 102–133; BP diastolic 56–76; PULSE 61–106; RESP 16–18; TEMP 36.4–36.6; O2SAT 79–100; BMI 33.7
[2024-03-28] MEDS: Lactated Ringers 1,000 ML 50 ML IV (07:35)
[2024-03-28 07:51] LABS: Absolute Lymphocyte Count 1.76 X10^3/uL (0.83-4.51); Absolute Neutrophil Count 8.2 X10^3/uL (2.0-7.7); Basophil# 0.03 X10^3/uL; Basophil% 0.3 % (0-1); Eosinophil# 0.08 X10^3/uL; Eosinophils% 0.7 % (0-5); Hematocrit 35.1 % (37-47); Hemoglobin 11.6 g/dL (12.0-15.0); Lymphocyte # 1.76 X10^3/ul (0.83-4.51); Mean Corpuscular Hgb 29.5 pg (27.0-32.0); Mean Corpuscular Volume 89.3 fL (81-99); Mean Platelet Vol. 9.1 fl (6.2-12.0); Monocyte# 0.76 X10^3/uL; Monocyte% 6.9 % (0-10); NRBC Flagged by Analyzer 0 % (0-5); Neutrophil # 8.18 X10^3/uL (2.7-7.7); Neutrophil % 74.3 % (47-70); Platelet Count 226 K/mm3 (150-450); RBC Distribution Width CV 12.6 % (11.6-14.6); RBC Distribution Width SD 41.3 fl (35.1-43.9); Red Blood Count 3.93 M/mm3 (4.2-5.4)
[2024-03-28] MEDS: Oxytocin 15 Units/NS 250ml 15 UNITS/250 ML IV.SOLN 2 UNITS IV (07:58)
[2024-03-28 08:45] LABS: Syphilis Antibodies Non-reactive
--- NOTE | 2024-03-28 09:01 | HP.PCM.OB_ITS ---
HPI - General General Date of Admission: 03/28/24 Date of Service: 03/28/24 Chief Complaint: induction HPI Narrative HANNAH FUENTES, is a 33 F who presents 5 para 4 high risk multigravida who presents for elective induction due to history of shoulder dystocia with her second delivery. has otherwise been uncomplicated to date. She has a history of urinary tract infection and anemia in . She is Rh-. Maternal Data Information Final MJ: 03/30/24 Gestational age: 39 5/7 PFSH PFSH Home Medications ?Medication ?Instructions ?Recorded ?Last Taken ?Type vits,calcium no.78-iron 1 tab PO DAILY ' 11/30/19 03/27/24 History fumarate-folic acid 29 mg-1 mg tablet Allergy/AdvReac Type Severity Reaction Status Date / Time No Known Allergies Allergy Verified 03/28/24 08:36 Surgical History History of surgery Social History Smoking Status: Never smoker History Elective abortions Hx Para 4 Spontaneous abortions Hx # Term Pregnancies Ectopic pregnancies Hx # Pregnancies Multiple births # of living children ROS Constitutional Constitutional: Denies fatigue, fever(s) or malaise Eyes Eyes: Denies change in vision ENT HEENT: Denies dizziness or headache(s) Cardiovascular Cardiovascular: Denies chest pain, dyspnea or lightheadedness Respiratory/Chest Respiratory/Chest: Denies cough or dyspnea Gastrointestinal Gastrointestinal: Denies change in bowel habits Genitourinary Genitourinary: Denies burning urination or genital lesions Integumentary Integumentary: Denies rash Neurologic Neurologic: Denies confusion, dizziness, headache(s), numbness or weakness Vital Signs Vital Signs Vital Signs: 03/28/24 07:34 03/28/24 07:34 03/28/24 07:34 Temperature Temperature Source Temporal Pulse Rate 90 Respiratory Rate Blood Pressure 111/66 BP Systolic 111 BP Diastolic 66 03/28/24 07:34 03/28/24 07:34 Temperature 97.5 F L Temperature Source Pulse Rate Respiratory Rate 16 Blood Pressure BP Systolic BP Diastolic Weight Weight: 90.537 kg Body Mass Index (BMI) 33.7 Physical Exam Const alert and no apparent distress General Appearance: cooperative HEENT normocephalic Resp normal respiratory effort Cardio regular rate GI soft to palpation GI Narrative: gravid, nontender, appropriate for gestational age Extremity no calf tenderness General Extremity: edema Skin no wounds Rashes: No rashes noted Psych activity/motor behavior normal Labs Labs Labs: Blood Type A NEGATIVE Antibody Screen NEGATIVE Hct 35.1 % (37-47) L Hgb 11.6 g/dL (12.0-15.0) L Syphilis Total Ab Non-reactive Rubella IgG Antibody 387.8 IU/mL Hep Bs Antigen Non-Reactive (Nonreactive) Hepatitis C Antibody Non-Reactive (Nonreactive) Hepatitis C Ab (EIA) 0.1 s/co ratio (0.0-0.9) HIV 1&2 Antibody Non-Reactive (Nonreactive) Glucose 1 Hr 50 gm 95 mg/dL (70-140) Rhogam given: Yes Assessment & Plan (1) High risk multigravida in third trimester: PLAN: Estimated weight is less than 4500 g and pelvis clinically adequate to expect vaginal delivery. Though the estimated weight of this fetus is less then the 1 that she had a shoulder dystocia with, we discussed that we cannot predict risk of recurrent shoulder dystocia completely. However, is very reasonable to proceed with attempted vaginal delivery with her clinical situat ion. After discussed and of risk benefits and alternatives to induction of labor versus expectant management versus elective patient desires to proceed with induction of labor today. May use routine pain control measures as needed and as indicated during labor. (2) History of shoulder dystocia in prior : (3) 39 weeks gestation of : (4) Grand multipara in labor in third trimester:
[2024-03-28] MEDS: Lactated Ringers 1,000 ML 999 ML IV (10:55)
[2024-03-28] MEDS: fentaNYL-bupivacaine (epidural) 100 ML BAG EPIDURAL (11:50)
[2024-03-28] MEDS: Ondansetron 4 MG/2 ML Vial IV (12:12)
--- NOTE | 2024-03-28 13:27 | EX.PCM.OBRPT ---
Assessment & Plan (1) (spontaneous vaginal delivery): (2) Shoulder dystocia during labor and delivery: Maternal Data Information Final MJ: 03/30/24 Gestational age: 39 5/7 Vaginal Delivery Maternal Presentation Maternal Presentation: Medically Indicated Induction Type of Induction: Pitocin and Amniotomy Medical Reason for Induction: - (h/o shoulder dystocia) Operative Information Date of Procedure: 03/28/24 Pre-Operative Diagnosis: labor Post-Operative Diagnosis: same Surgery / Procedure Performed: Spontaneous Vaginal Delivery Type of Anesthesia: Epidural Special Medications: none Drain: - (none) Estimated Blood Loss: 300 Time of Delivery: 13:10 Findings Description of Procedure: A vigorous male was delivered ADEEL over an intact perineum. Loose nuchal cord x 2 was easily reduced. Initially the head restituted facing the maternal left however it was obvious that that was not the shoulder that was anterior. The head then restituted to the right. With 1 push the shoulder did not deliver easily. I then asked the nurses at 20 seconds after the head delivered to flexed the legs. At 28 seconds after delivery suprapubic was initiated. At 35 seconds after delivery of the head I was able to reach my hand and and push the anterior shoulder forward at which the shoulders easily then reduced and the remainder the infant delivered by 47 seconds. The Pitocin infusion was initiated for active management of the third stage. The cord was clamped and cut quickly so the infant could be placed on the warmer. The infant was attended to by the waiting nursing staff. The placenta was delivered spontaneously and intact. The cervix and vagina were intact. Sponge and needle counts were correct. A vaginal sweep was completed by me. Presentation: ADEEL Amniotic Membrane Rupture Type: Artificial Amniotic Fluid Description: Clear Placental Delivery Description: Spontaneous Placenta Disposition: [facility] Cord Vessel Description: 3 Vessels Cord Entanglement: Around neck x 2, loose Nuchal Cord Compression: Without compression Cord Gases: ABG and VBG A Gender: Male (Gerald) (1 minute): 7 (5 minute): 9 Delayed Cord Clamping: No Post Vaginal Delivery Medications Given After Delivery: IV Pitocin Episiotomy Description: None Laceration: None Complication Complications: None
[2024-03-28] MEDS: Oxytocin 15 Units/NS 250ml 15 UNITS/250 ML IV.SOLN 334 UNITS IV (13:45)
[2024-03-28] MEDS: Oxytocin 15 Units/NS 250ml 15 UNITS/250 ML IV.SOLN 83 UNITS IV (14:45)
[2024-03-28] MEDS: Acetaminophen 500 MG Tablet 1000 MG PO ×2 (16:34→22:46)
[2024-03-28] MEDS: Rho(D) Immune Globulin 300 MCG (1500 Unit) Syringe IV (18:47)
[2024-03-28] MEDS: 0.9% Saline Lock 10 ML Syringe IV (18:52)
[2024-03-28] MEDS: Ibuprofen 600 MG Tablet PO (20:02)
[2024-03-29 00:35] VITALS: BP 106/60; PULSE 76; RESP 16; TEMP 36.6; O2SAT 98
[2024-03-29] MEDS: Ibuprofen 600 MG Tablet PO ×3 (02:30→15:43)
[2024-03-29 04:55] VITALS: BP 108/71; PULSE 66; RESP 16; TEMP 36.6; O2SAT 98
[2024-03-29] MEDS: Acetaminophen 500 MG Tablet 1000 MG PO (05:28)
[2024-03-29 08:00] VITALS: BP 131/66; PULSE 69; RESP 18; TEMP 36.5
--- NOTE | 2024-03-29 08:48 | PCM.PN.OB ---
Subjective Subjective Denies complaints Objective Data Objective Data Vital Signs: Vital Signs Temp Pulse Resp BP Pulse Ox O2 Del Method 97.7 F L 69 18 131/66 H 98 Room Air 03/29/24 08:00 03/29/24 08:00 03/29/24 08:00 03/29/24 08:00 03/29/24 04:55 03/29/24 08:00 Oxygen Delivery Method Room Air Weight: 199 lb 9.6 oz Body Mass Index (BMI) 33.7 Intake & Output: Intake and Output for Last 24 Hours 03/27/24 03/28/24 03/29/24 23:59 23:59 23:59 Intake Total 2025.80 / 2025.80 Output Total 400 / 400 Balance 1625.80 / 1625.80 Lab / Micro Data 03/28/24 07:35 Labs: Laboratory Results - last 24 hr 03/28/24 07:35: Blood Type A NEGATIVE, Antibody Screen NEGATIVE 03/28/24 15:30: Screen NEGATIVE, Baby's Blood Type A POSITIVE, Baby's RUPAL NEGATIVE Physical Exam Const alert, oriented x3 and no apparent distress HEENT normocephalic GI soft to palpation, non-tender and non-distended GI Narrative: fundus firm, mid & below umbilicus Extremity normal to inspection and no calf tenderness Assessment & Plan (1) (spontaneous vaginal delivery): COMMENT: PPD#1 PLAN: D/c home per patient request
--- NOTE | 2024-03-29 08:50 | PCM.DC.SUM ---
Providers Date of Admission: 03/28/24 Primary Care Physician: Enedina Primary Care Phys Reason For Visit: INDUCTION Diagnosis Discharge Diagnosis (1) (spontaneous vaginal delivery): Status: Acute Code(s): O80 - Encounter for full-term uncomplicated delivery Plan: D/c home per patient request Medications at Discharge Home Medications vits,calcium no.78-iron fumarate-folic acid 29 mg-1 mg tablet 1 tab PO DAILY ' 11/30/19 acetaminophen 500 mg tablet 1,000 mg (2 x 500 mg) PO Q6H PRN PRN Pain 1-10 Or Fever #0 tabs 03/29/24 ibuprofen 600 mg tablet 600 mg PO Q6H PRN PRN Pain Score 1-10 #0 tabs 03/29/24 Hospital Course Operations None Summary of Care Provided Minutes Spent on Discharge: 15 Physical Exam Const alert, oriented x3 and no apparent distress HEENT normocephalic GI soft to palpation, non-tender and non-distended GI Narrative: fundus firm, mid & below umbilicus Extremity normal to inspection and no calf tenderness Weight / BMI Weight Weight: 199 lb 9.6 oz Body Mass Index (BMI) 33.7 ABG / Lab / Microbiology Data 03/28/24 07:35 Laboratory: Laboratory Results - last 24 hr 03/28/24 07:35: Blood Type A NEGATIVE, Antibody Screen NEGATIVE 03/28/24 15:30: Screen NEGATIVE, Baby's Blood Type A POSITIVE, Baby's RUPAL NEGATIVE D/C Instructions Discharge Diet: No restrictions May resume sexual activity in: 6 weeks Weight Bearing Status: Weight bearing as tolerated Call your doctor if you observe: Fever of 101 or Higher, Coldness, Increased Pain, Change in Color, Inability to urinate, Inability to have a bowel movement, Using more than 1 pad per hour, Shortness of breath, Dizziness, Fainting spells, Chest pain, Increased palpitations (irregular heartbeat), Calf discomfort and Uncontrolled pain Please Follow Up With: Sveta Parker MD When: Follow up in 2 and 6 weeks for visits. Meaningful Use Info Meaningful Use Meaningful Use Diagnoses (Choose all that apply): None applicable Ischemic Stroke Statin Dosing Therapy Reference: STATIN DOSE THERAPY REFERENCE: * Patients > 75 years receive moderate or high dose statin therapy. * Patients 75 years or YOUNGER should receive HIGH intensity statin dose unless contraindicated. You will be required to document reason for non-treatment if statin daily dose does not meet guidelines. HIGH DOSE STATIN THERAPY DAILY Atorvastatin > than or = to 40 mg Rosuvastatin > than or = to 20 mg Amlodipine + Atorvastatin > than or = to 2.5/40 mg Ezetimibe + Simvastatin 10/80 mg Simvastatin 80mg Discharge Plan Admission Admit Date/Time: 03/28/24 07:16 Primary Reason for Your Visit: Vaginal delivery Attending Provider: Sveta Parker Primary Care Provider: Care Physician,Enedina Primary Discharge Orders/Prescriptions Prescriptions: New acetaminophen 500 mg Tablet 1,000 mg PO Q6H PRN PRN (Reason: Pain 1-10 Or Fever) Qty: 0 0RF ibuprofen 600 mg Tablet 600 mg PO Q6H PRN PRN (Reason: Pain Score 1-10) Qty: 0 0RF Continued vit,[id number] 1 TABLET tablet 1 tab PO DAILY Referrals / Follow Up: Care Physician,No Primary [Primary Care Provider] - Disposition Disposition (needs filled in before D/C Order can be placed): Home, Self Care
[2024-03-29 11:33] VITALS: BP 116/67; PULSE 80; RESP 17; TEMP 36.7
[2024-03-29 15:30] VITALS: BP 126/64; PULSE 71; RESP 16; TEMP 36.5
--- NOTE | 2024-04-04 14:46 | NURSING ---
Follow up phone call made. Patient states she is doing well, no pain and minimal bleeding. Denies any headaches, visual changes, or baby blues. Patient states is going well. is nursing every 2-3 hours and having plenty of wet and dirty diapers. Denies any questions or concerns at this time.
== END 2024-03-29 16:00 | disposition home or self-care (01) | DRG 807 ==
PROVIDERS: Admitting Provider Obstetrics & Gynecology; Referring Provider Obstetrics & Gynecology; Visit Provider Obstetrics & Gynecology
DX: O69.81X0 Labor and delivery complicated by cord around neck, without compression, not applicable or unspecified (principal); Z37.0 Single live birth; O66.0 Obstructed labor due to shoulder dystocia; Z3A.39 39 weeks gestation of pregnancy
CPT/HCPCS: 59025; 59050; 85025; 85461; 86780; 86850; 86900; 86901; 90384; 99221; J7120; A4216; G0378; J2405; J2790; J2791